=== PATIENT | male | born 1975 | race African-American/Black ===

== ENCOUNTER 2019-09-21 00:33 | Emergency (ER) | payer OTHER ==
[2019-09-21 01:21] VITALS: BP 140/73; PULSE 73; TEMP 98; BMI 26.1
--- NOTE | 2019-09-21 01:58 | PDOC ---
Attending Attestation - Resident Resident Name: Booker Jimenez - ED Attending Attestation I have performed the following: I have examined & evaluated the patient, The case was reviewed & discussed with the resident, I agree w/resident's findings & plan - HPI HPI: 09/21/19 01:56 Pt comes with penile discharge and he has no other PMHx. - Physicial Exam PE: 09/25/19 22:51 Agree with resident exam - Medical Decision Making 09/21/19 04:25 pt treated and he will be asked to follow at a STD clinic
[2019-09-21] MEDS ORDERED: AZITHROMYCIN 500 MG TABLET PO ONE (03:12)
[2019-09-21 03:14] LABS: EPI CELLS 2.5 /HPF (0-5/HPF); HYALINE CASTS 10 /lpf (0-8); PH,URINE 7.5 (5.0-8.0); URINE APPEARANCE CLEAR; URINE BACTERIA 8.6 /hpf (NEGATIVE); URINE BILIRUBIN NEGATIVE (NEGATIVE); URINE COLOR YELLOW; URINE GLUCOSE (UA) NEGATIVE (NEGATIVE); URINE KETONE TRACE (NEGATIVE); URINE LEUK ESTERASE TRACE (NEGATIVE); URINE NITRITE NEGATIVE (NEGATIVE); URINE PROTEIN TRACE (NEGATIVE); URINE RBC 4 /hpf (0-4); URINE WBC 26 /hpf (0-5)
--- NOTE | 2019-09-21 03:30 | PDOC ---
History of Present Illness - General Chief Complaint: Urinary Problem Stated Complaint: STD CHECK UP Time Seen by Provider: 09/21/19 01:39 History Source: Patient Exam Limitations: No Limitations - History of Present Illness Initial Comments: 09/21/19 03:45 44M with no PMH who presents to the ER for complaints of dysuria and clear penile discharge. Patient states that he had oral sex with a new partner 4 days ago and developed symptoms since then. Denies fever, chills, testicular pain, abdominal pain. Unsure of partner's STI status. Past History - Past Medical History Allergies/Adverse Reactions: Allergies Allergy/AdvReac Type Severity Reaction Status Date / Time No Known Allergies Allergy Verified 09/21/19 01:16 Cardiac Disorders: No COPD: No Disorders: No Kidney Stones: No - Psycho Social/Smoking Cessation Hx Smoking History: Never smoked Review of Systems - Review of Systems Able to Perform ROS?: Yes Comments:: 09/21/19 03:46 GENERAL/CONSTITUTIONAL: No fever or chills. No weakness. HEAD, EYES, EARS, NOSE AND THROAT: No change in vision. No ear pain or discharge. No sore throat. CARDIOVASCULAR: No chest pain, palpitations, or lightheadedness. RESPIRATORY: No cough, wheezing, shortness of breath, or hemoptysis. GASTROINTESTINAL: No abdominal pain, nausea, vomiting, diarrhea, or constipation. GENITOURINARY: + for dysuria and penile discharge. No frequency, hematuria, or change in urination. MUSCULOSKELETAL: No joint or muscle swelling or pain. No neck or back pain. SKIN: No rash or lesions. NEUROLOGIC: No headache, numbness, tingling, focal weakness, loss of consciousness, or change in strength/sensation. Is the patient limited [place] proficient: No *Physical Exam - Vital Signs Last Vital Signs Temp Pulse Resp BP Pulse Ox 98.0 F 73 18 140/73 99 09/21/19 01:17 09/21/19 01:17 09/21/19 01:17 09/21/19 01:17 09/21/19 01:17 - Physical Exam 09/21/19 03:47 GENERAL: Well developed, well nourished. Awake and alert. No acute distress. HEENT: Normocephalic, atraumatic. Hearing grossly normal. Moist mucous membranes. PERRLA, EOMI. No conjunctival pallor. Sclera are non-icteric. NECK: Supple. Full ROM. No JVD. CARDIOVASCULAR: Regular rate and rhythm. No murmurs, rubs, or gallops. PULMONARY: No evidence of respiratory distress. Lungs clear to auscultation bilaterally. No wheezing, rales, or rhonchi. ABDOMINAL: Soft. Non-tender. Non-distended. No rebound or guarding. GENITOURINARY: No CVA tenderness bilaterally. No testicular tenderness. No lesions noted on penis or genitalia. MUSCULOSKELETAL: Normal range of motion at all joints. No bony deformities or tenderness. EXTREMITIES: No cyanosis. No clubbing. No edema. No calf tenderness or swelling. SKIN: Warm and dry. Normal capillary refill. No rashes. No jaundice. NEUROLOGICAL: Alert, awake, appropriate. Cranial nerves 2-12 grossly intact. Normal speech. Gait is normal without ataxia. PSYCHIATRIC: Cooperative. Good eye contact. Appropriate mood and affect. ED Treatment Course - ADDITIONAL ORDERS Additional order review: Laboratory Results 09/21/19 02:30 Urine Color Yellow Urine Appearance Clear Urine pH 7.5 Ur Specific [place] 1.027 Urine Protein Trace Urine Glucose (UA) Negative Urine Ketones Trace H Urine Blood Negative Urine Nitrite Negative Urine Bilirubin Negative Urine Urobilinogen 1.0 Ur Leukocyte Esterase Trace Urine WBC (Auto) 26 Urine RBC (Auto) 4 Urine Casts (Auto) 10 U Epithel Cells (Auto) 2.5 Urine Bacteria (Auto) 8.6 Medical Decision Making - Medical Decision Making 09/21/19 03:47 44M with recent new sexual contact requesting STI testing. Pt does not want HIV testing but will be referred to PCP for further evaluation. UA sent with GC/ Chla amplification. Denies vaginal sex and states he only had oral sex. Treating with ceftriaxone and azithro. Will d/c with PCP f/u. Discharge - Discharge Information Problems reviewed: Yes Clinical Impression/Diagnosis: Dysuria Condition: Good Disposition: HOME - Admission No - Follow up/Referral Referrals: [facility] [place] [Provider Group] - Patient Discharge Instructions Patient Printed Discharge Instructions: Facts About Sexually Transmitted Infections Additional Instructions: Your ER visit is not complete until your follow up with your primary care physician. Please follow up with your primary care physician in 1-2 days. We only tested you for chlamydia and gonorrhea. You will need to go to the primary care doctor for HIV, syphilis, and other testing. Please return to the ER if you have any signs or symptoms of chest pain, shortness of breath, uncontrollable fever, chills, nausea, vomiting, numbness, tingling, or weakness in any part of your body, changes in vision, or slurred speech. Please return to the ER if symptoms persist, worsen, or new symptoms arise. - Post Discharge Activity
[2019-09-21] MEDS ORDERED: AZITHROMYCIN 500 MG TABLET ONE (03:54)
[2019-09-21] MEDS ORDERED: LIDOCAINE HCL 1%, 10 MG/ML (20ML VIAL) ONE (03:55)
== END 2019-09-21 04:30 | disposition home or self-care (01) ==
LOC: JER 00:33
DX: R30.0 Dysuria (principal); R36.9 Urethral discharge, unspecified
CPT/HCPCS: 36415; 81003; 87086; 87491; 87591; 99284-25